=== PATIENT | female | born 1985 | race African-American/Black ===

== ENCOUNTER 2021-04-22 11:36 | Emergency (ER) | payer OTHER, SELFPAY ==
[2021-04-22 12:47] VITALS: BP 134/70; PULSE 98; RESP 16; TEMP 36.2; O2SAT 100
--- NOTE | 2021-04-22 13:26 | ED.FEMALEGU ---
HPI - Female Genitourinary General Chief complaint: Urogenital-Female Stated complaint: poss bladder infection Source: patient and RN notes reviewed Limitations: no limitations History of Present Illness HPI Narrative: The unvaccinated overweight patient, a non-smoker/nondrinker, presents with 1/2-week history of definite urinary urgency and frequency-unlike prior UTIs [but not as severe]. No fever, abdominal pain, vomiting/diarrhea,, [she has an IUD and LMP was within a couple weeks this month]. She comments she has mild right low back pain, and is not sexually active but does have some discharge and would like would like to be treated for vaginosis. Delayed and late day [id number] urinalysis is unremarkable, so will treat broadly Related Data Allergies Allergy/AdvReac Type Severity Reaction Status Date / Time No Known Allergies Allergy Verified 04/22/21 12:46 Review of Systems Review of Systems: General/Constitutional: No weight loss,fever Eyes: N0: Redness,discharge Ears/Nose/Throat: No: Epistaxis,ear discharge Respiratory: Denies: Hemoptysis Gastrointestinal: No Vomiting, Bleeding-rectal Skin: No Lumps, eruption Neurologic: No Focal Weakness,Sz Hematologic: Denies: Petechiae/Purpura Psychiatric: No: Suicida ideationl All Other Systems: Reviewed and Negative PMFSH Comments At time of signature, agree with nursing past medical, surgical, social and family history. There is no relevant family history pertinent to the presenting complaint Exam Narrative: General Appearance: Well appearing, No distress EYE: PERRLA, Conjunctiva clear Ears: External ear normal Nose: Normal nose Mouth/Throat: Normal appearing, Normal lips Neck: Supple Respiratory: Airway patent, No respiratory distress Cardiovascular: RRR Abdomen: Soft, Non-tender, No massess, No organomegaly Musculoskeletal: Full ROM Skin: Warm, Dry Neurological: A&O x3, CN II-X intact Psychiatric: Normal mood, Normal affect Course Vital Signs Vital signs: Vital Signs Temperature 97.1 F L 04/22/21 12:47 Pulse Rate 98 04/22/21 12:47 Respiratory Rate 16 04/22/21 12:47 Blood Pressure 134/70 04/22/21 12:47 Pulse Oximetry 100 04/22/21 12:47 Temperature 97.1 F L 04/22/21 12:47 Pulse Rate 98 04/22/21 12:47 Respiratory Rate 16 04/22/21 12:47 Blood Pressure 134/70 04/22/21 12:47 Pulse Oximetry 100 04/22/21 12:47 MDM - Female Genitourinary Lab Data Labs: Lab Results 04/22/21 04/22/21 Range/Units 14:12 14:15 C.trachomatis RNA (TMA) Pending N.gonorrhoeae RNA (TMA) Pending T. vaginalis Amp RNA Pending Urine Glucose Negative Reference Range: Negative Urine Bilirubin Negative Reference Range: Negative Urine Ketone Negative Reference Range: Negative Urine Specific Horatio 1.030 Reference Range:1.001-1.035 Urine Blood Negative Reference Range: Negative * * Urine pH 6.0 Reference Range: 5.0-9.0 Urine Protein Negative Reference Range: Negative Urine Urobilinogen 1.0 Reference Range: 0.2-1.0 Urine Nitrate Negative Reference Range: Negative Urine Leukocyte Negative Reference Range: Negative Urine Color Gaye
--- NOTE | 2021-04-22 13:33 | PC.NURSE ---
water provided, pt unable to void at present. 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 pt reports frequency with urination and rt side pain. denies any n-v-d.
== END 2021-04-22 14:15 | disposition home or self-care (01) ==
PROVIDERS: Emergency Provider Emergency Medicine
DX: R35.0 Frequency of micturition (principal)
CPT/HCPCS: 81003; 87086; 87491; 87591; 87661; 99214; G0463

== ENCOUNTER 2021-06-17 12:26 | Emergency (ER) | payer OTHER, SELFPAY ==
[2021-06-17 12:33] VITALS: BP 134/68; PULSE 94; RESP 16; TEMP 36.3; O2SAT 100
--- NOTE | 2021-06-17 12:37 | ED.DENTAL ---
HPI - Dental/Oral General Chief complaint: Dental/Oral Stated complaint: Jaw pain Time Seen by Provider: 06/17/21 12:37 Source: patient, RN notes reviewed and old records reviewed Mode of arrival: ambulatory Limitations: no limitations History of Present Illness HPI Narrative: 36 year old female presents to [facility] care with complaints of dental pain to the right upper back molar #1 which is broken off and gum is red and swollen around tooth, no drainage noted. Patient has swelling to the right side of her face with tenderness for the past 2 days, Patient has been taking Ibuprofen for her pain, no trismus noted, no difficult with swallowing or with breathing. Patient denies any fevers, chills or sweats, has not been able to get into a dentist. MD Complaint: tooth pain and tooth injury Location: Tooth # (#1) Onset (ago): day(s) (2) Duration: worsening Severity scale (1-10): 10 Relieving factors: NSAIDs Exacerbating factors: chewing Context: history of dental caries Associated symptoms: gum swelling and other (facial swelling) Treatment prior to arrival: oral analgesic (ibuprofen) Related Data Allergies Allergy/AdvReac Type Severity Reaction Status Date / Time No Known Allergies Allergy Verified 06/17/21 12:32 Review of Systems Review of Systems: CONSTITUTIONAL: Denies fever, chills, or sweats. EYES: Denies visual changes, redness, or discharge. ENT: Denies rhinorrhea, congestion, sore throat, or otalgia.dental pain to right upper most posterior molar which is broken off and facial pain and swelling to right side of face.. CARDIOVASCULAR: Denies chest pain, palpitations, or edema. RESPIRATORY: Denies cough or dyspnea. GASTROINTESTINAL: Denies abdominal pain, nausea, vomiting, or diarrhea. GENITOURINARY: Denies dysuria or hematuria. SKIN: Denies rash or itching. MUSCULOSKELETAL: Denies back pain, joint pain, or myalgia. NEUROLOGIC: Denies headache, numbness, or weakness. PSYCHIATRIC: Denies anxiety or depression. All systems reviewed & are unremarkable except as noted in HPI and below PMFSH Past Medical History Medical History (Updated 06/17/21 @ 14:07 by Paulette Abbasi NP) Right hand weakness states from injury Surgical History Surgical History (Updated 06/17/21 @ 13:53 by Paulette Abbasi NP) H/O neck surgery Patient reports that she had trach at age 4 Family History Family History (Updated 06/17/21 @ 13:51 by Paulette Abbasi NP) Grandparent Hypertension Social History Social History (Updated 06/17/21 @ 13:51 by Paulette Abbasi NP) Smoking status: Never smoker Alcohol intake: never Substance use: never Living arrangements: with family Gender identity (if verbalized by the patient): Female Comments At time of signature, agree with nursing past medical, surgical, social and family history. There is no relevant family history pertinent to the presenting complaint Exam Narrative: GENERAL: Well-appearing, well-nourished, and in no acute distress. HEAD: Normocephalic, atraumatic. EYES: PERRLA and EOMI. ENT: Nares clear, no rhinorrhea or epistaxis. Mucous membranes moist. TM's normal with good light reflex, throat pink with no tonsil swelling, exudates or lesion. Right posterior upper molar#1 broken off with swelling and redness of gum noted with no drainage, right sided facial swelling noted. Patient denies any difficulty with swallowing or with her breathing,no [place] angina or any trismus noted. NECK: Supple.no lymphadenopathy CHEST: Clear to auscultation. No respiratory distress.SAO2 100% on room air, no cough noted or any dyspnea HEART: Regular rate and rhythm. No murmur heard. Normal peripheral pulses. ABDOMEN: Soft, nontender, nondistended, normal active bowel sounds. EXTREMITIES: Normal range of motion. No edema Some decreased mobility of right hand patient reports is from nerve damage due to accident.. SKIN: Warm, dry, no rash. NEURO: No focal deficits. Alert and oriented x3. Cours
== END 2021-06-17 12:58 | disposition home or self-care (01) ==
PROVIDERS: Emergency Provider Registered Nurse
DX: K04.7 Periapical abscess without sinus (principal); S02.5XXA Fracture of tooth (traumatic), initial encounter for closed fracture; X58.XXXA Exposure to other specified factors, initial encounter
CPT/HCPCS: 99213; G0463

== ENCOUNTER 2022-03-04 18:14 | Emergency (ER) | payer OTHER, SELFPAY ==
--- NOTE | 2022-03-04 18:17 | ED.FEMALEGU ---
HPI - Female Genitourinary General Chief complaint: Urogenital-Female Stated complaint: LOW BACK PAIN/PAINFUL URINATION Time Seen by Provider: 03/04/22 18:25 Source: patient and RN notes reviewed Mode of arrival: ambulatory Limitations: no limitations History of Present Illness HPI Narrative: 37-year-old female presents with concern for dysuria, low back pain, frequency, urgency. Reports symptoms started on Monday. She denies fever, body aches, chills, sweats, vomiting, abdominal pain. Reports an episode of nausea. MD elicited complaint: UTI Related Data Allergies Allergy/AdvReac Type Severity Reaction Status Date / Time No Known Allergies Allergy Verified 03/04/22 18:17 Review of Systems Review of Systems: CONSTITUTIONAL: Denies malaise, chills, sweats, or fever. CARDIOVASCULAR: Denies chest pain, palpitations, or edema. RESPIRATORY: Denies cough or dyspnea. GASTROINTESTINAL: Denies abdominal pain, nausea, vomiting, diarrhea. Reports GENITOURINARY: Reports dysuria, frequency, urgency. Denies suprapubic pressure. Denies flank pain or hematuria. SKIN: Denies rash or itching. MUSCULOSKELETAL:. Reports bilateral back pain. Denies myalgia. All systems reviewed & are unremarkable except as noted in HPI and below PMFSH Past Medical History Medical History (Updated 03/04/22 @ 18:28 by Sujatha Gotti NP) Right hand weakness states from injury Surgical History Surgical History (Updated 06/17/21 @ 13:53 by Paulette Abbasi NP) H/O neck surgery Patient reports that she had trach at age 4 Family History Family History (Updated 06/17/21 @ 13:51 by Paulette Abbasi NP) Grandparent Hypertension Social History Social History (Updated 06/17/21 @ 13:51 by Paulette Abbasi NP) Smoking status: Never smoker Alcohol intake: never Substance use: never Gender identity (if verbalized by the patient): Female Comments At time of signature, agree with nursing past medical, surgical, social and family history. There is no relevant family history pertinent to the presenting complaint Exam Narrative: GENERAL: Well-appearing, well-nourished, and in no acute distress. HEAD: Normocephalic. EYES: PERRLA, conjunctivae clear. NECK: Supple. No lymphadenopathy CHEST: Clear to auscultation. No respiratory distress. HEART: Regular rate and rhythm. ABDOMEN: Soft, nontender upon palpation, nondistended, normal active bowel sounds, no palpable or pulsatile masses, no guarding. No CVA tenderness SKIN: Warm, dry, no rash. NEURO: Alert and oriented x3. PSYCH: Normal mood and affect Course Course Emergency Course: Patient is aware of diagnosis, understands and agrees to treatment plan. Anticipatory guidance given. Patient agrees to follow-up as directed and is aware of reasons to seek care at the emergency department. Portions of this record may have been created with voice recognition software Level of Care: Express Care Visit Vital Signs Vital signs: Reviewed. MDM - Female Genitourinary MDM Narrative Medical decision making narrative: Exam findings and UA show no acute concerns or changes; patient is non-toxic appearing and is in no distress. Patient is appropriate for outpatient treatment and follow-up. Differential Diagnosis Differential diagnosis: Likely urinary tract infection and cystitis Critical Care Time Critical Care Time Critical Care Time: No Discharge Plan Discharge Clinical Impression: Urinary tract infection Patient Disposition: Home, Self-Care Condition: Stable Instructions: Antibiotic Form, Urinary Tract Infection in Women (ED) Additional Instructions: We will send a urine culture to the lab; if the culture identifies an organism that the prescribed antibiotic will not treat, you will receive a phone call from an urgent care staff member and an appropriate antibiotic will be prescribed. -Your symptoms should begin to improve within a day of starting antibiotics. But y
[2022-03-04 18:25] VITALS: BP 121/63; PULSE 101; RESP 20; TEMP 36.6; O2SAT 99
== END 2022-03-04 18:30 | disposition home or self-care (01) ==
PROVIDERS: Emergency Provider Nurse Practitioner
DX: N39.0 Urinary tract infection, site not specified (principal)
CPT/HCPCS: 81003; 87086; 87088; 99213; G0463

== ENCOUNTER 2022-04-21 07:41 | Emergency (ER) | payer OTHER, SELFPAY ==
--- NOTE | ~2022-04-21 | XR_ITS ---
EXAMINATION: XR chest 1V portable DATE: 04/21/2022 08:50 INDICATION: Chest pain and shortness of breath TECHNIQUE: frontal view of the chest was obtained. COMPARISON: None FINDINGS: The lungs are clear with no focal airspace opacities, pulmonary edema, pleural effusion or pneumothor ax. The cardiomediastinal silhouette is normal. Visualized bones and soft tissues are unremarkable. IMPRESSION: 1. No acute cardiopulmonary disease. Reviewed, dictated and finalized at location A. NG APPLICATOR
--- NOTE | ~2022-04-21 | CT_ITS ---
EXAMINATION: CTA chest PE protocol DATE: 04/21/2022 10:12 INDICATION: Chest pain and shortness of breath TECHNIQUE: Computed tomography angiography (CTA) of the chest was performed with 100 mL Omnipaque-350 intravenous contrast timed to evaluate the pulmonary arteries. Coronal maximum intensity projection 3D-reconstructions were created by the technologist. The dose-length product (DLP) was 558.60 mGy-cm. Automated exposure control and iterative reconstruction technique were employed. COMPARISON: None. FINDINGS: The pulmonary arteries are well-opacified. No pulmonary embolism is identified. There is mi ld dependent atelectasis. The lungs are free of focal airspace opacities. No pleural effusion or pneu mothorax. No pathologically enlarged thoracic lymph nodes are identified. The heart size is normal. N onobstructing stones of the left kidney upper pole measure up to 4 mm. IMPRESSION: 1. No pulmonary embolism or acute cardiopulmonary abnormality. Reviewed, dictated and finalized at location L. FIELD DATA COLLECTOR
[2022-04-21 07:46] VITALS: BP 148/79; PULSE 105; RESP 18; TEMP 36.5; O2SAT 100
--- NOTE | 2022-04-21 08:02 | ECG_ITS ---
Measurements Intervals [place] Rate: 85 P: 36 ID: [id number] QRS: -18 QRSD: 94 T: 7 QT: 380 QTc: 453 Interpretive Statements SINUS RHYTHM NO PREVIOUS ECG AVAILABLE FOR COMPARISON Electronically Signed On 04-21-2022 14:52:46 LANGUAGE PATHOLOGIST by Fadi Mcallister M.D.
[2022-04-21 08:16] VITALS: BP 109/79; PULSE 95; RESP 18; O2SAT 100
--- NOTE | 2022-04-21 08:17 | ED.GENADULT ---
HPI - General Adult General Chief complaint: Back Pain/Injury Stated complaint: BACK PAIN Time Seen by Provider: 04/21/22 07:51 History of Present Illness HPI narrative: This is a 37-year-old female presenting ED with a chief complaint of back pain and associated shortness of breath. Patient says that when she woke up this morning she had a sharp pain on the left back between her shoulder blades. It is 10 out 10 intensity and constant. She has never had pain like this before, it is worse with deep breaths and movement, there are no alleviating factors. Patient denies fever, chills, abdominal pain or urinary symptoms. She is vaccinated against flu and COVID. family history of unprovoked DVT in the patient's father. No recent trauma, surgery, known malignancy. patient has chronic left lower extremity swelling. Related Data Home Medications Medication Instructions Recorded Confirmed No Home Medications 04/21/22 04/21/22 Allergies Allergy/AdvReac Type Severity Reaction Status Date / Time No Known Allergies Allergy Verified 04/21/22 07:56 Review of Systems Review of Systems: CONSTITUTIONAL: Denies night sweats. EYES: No eye pain ENT: Denies rhinorrhea CARDIOVASCULAR: Denies palpitations RESPIRATORY: Denies hemoptysis GASTROINTESTINAL: Denies hematemesis GENITOURINARY: Denies hematuria. SKIN: Denies rash MUSCULOSKELETAL: Denies myalgia. NEUROLOGIC: Denies weakness. PSYCHIATRIC: Denies delusions PMFSH Past Medical History Medical History Right hand weakness states from injury Surgical History Surgical History H/O neck surgery Patient reports that she had trach at age 4 Family History Family History Grandparent Hypertension Social History Social History Smoking status: Never smoker Alcohol intake: never Substance use: never Gender identity (if verbalized by the patient): Female Exam Narrative: APPEARANCE: No apparent distress. Head: atraumatic. EYES: EOMI, NOSE: Atraumatic NECK: Trachea midline RESPIRATORY: No increased rate of breathing, Clear to auscultation bilaterally, no increased work of breathing CARDIOVASCULAR: tachycardic, left lower extremity is larger than the right without pitting edema. Patient states this is chronic. ABDOMINAL: Non-distended Soft, no guarding rebound MUSCULOSKELETAl: No obvious deformities NEURO: Alert. Moving 4/4 extremities SKIN:: Warm, dry. Normal color PSYCHIATRIC: Normal affect Course Vital Signs Vital signs: Vital Signs Temperature 97.7 F 04/21/22 07:46 Pulse Rate 105 H 04/21/22 07:46 Respiratory Rate 18 04/21/22 07:46 Blood Pressure 148/79 H 04/21/22 07:46 Pulse Oximetry 100 04/21/22 07:46 Oxygen Delivery Room Air 04/21/22 07:46 Temperature 97.7 F 04/21/22 07:46 Pulse Rate 81 04/21/22 09:16 Respiratory Rate 13 04/21/22 09:16 Blood Pressure 128/64 04/21/22 09:16 Pulse Oximetry 100 04/21/22 09:16 Oxygen Delivery Room Air 04/21/22 07:46 Medical Decision Making [facility] Narrative Medical decision making narrative: this is a 37-year-old female presenting ED with a chief complaint of back pain and shortness of breath. Differential includes viral syndrome, pulmonary embolism, pneumonia, muscle strain. Patient is tachycardic and PE cannot be ruled be ruled out via the PERC rule. EKG, chest x-ray lab work including a D-dimer have been ordered. Patient has been treated with nsaids/tylenol and fluids. EKG interpretation: Rhythm [sinus], Rate 85, [place] -[normal], NC -[normal], QRS [narrow], QTC [normal], T waves -[negative for concerning inversions], ST Segments - [Negative for concerning elevations] Final interpretations: [Normal Sinus Rhythm] Lab work was significant for D-dim
--- NOTE | 2022-04-21 08:22 | PC.NURSE ---
BS 102
[2022-04-21 08:23] LABS: Glucose Point of Care 102 mg/dl (65-105)
[2022-04-21 08:28] LABS: Basophils Percent Auto 0.4 % (0.2-1.2); Eosinophils Absolute Auto 0.1 K/mm3 (0-0.3); Eosinophils Percent Auto 1.2 % (0-4.4); Hematocrit 39.7 % (37.0-47.0); Hemoglobin 13.4 g/dL (12.0-15.0); Immature Granulocyte Absolute 0.02 K/mm3 (0.00-0.031); Immature Granulocyte Percent A 0.4 % (0-0.5); Lymphocytes Absolute Auto 2.49 K/mm3 (0.9-3.2); Lymphocytes Percent Auto 48.2 % (18.3-44.2); Mean Corpuscular HGB Conc 33.8 g/dl (32-36); Mean Corpuscular Hemoglobin 31.1 pg (26-34); Mean Corpuscular Volume 92.1 fl (80-100); Monocytes Absolute Auto 0.6 K/mm3 (0.1-0.6); Monocytes Percent Auto 10.6 % (2.6-8.5); Neutrophils Percent Auto 39.2 % (45.5-73.1); Platelet Count Result 166 k/mm3 (150-375); Red Blood Count 4.31 M/mm3 (4.2-5.4); Red Cell Distribution Width 12.2 % (11.5-14.5); White Blood Count 5.2 K/mm3 (4.5-10.0)
[2022-04-21] MEDS: SODIUM CHLORIDE 0.9% IV 2,000 ML 999 ML IV CONT (08:30)
[2022-04-21] MEDS: ONDANSETRON INJ 4 MG/2 ML VIAL IV PUSH (08:31)
[2022-04-21] MEDS: KETOROLAC 15 MG/ML VIAL (*BKC) IV PUSH (08:32)
[2022-04-21 08:33] VITALS: BP 120/92; PULSE 92; RESP 18; O2SAT 100
[2022-04-21 08:36] LABS: Alanine Aminotransferase 24 U/L (6-35); Alkaline Phosphatase 59 U/L (38-126); Anion Gap 3 mmol/L (8-16); Aspartate Amino Transferase 26 U/L (14-36); Bilirubin,Total 0.2 mg/dL (0.2-1.3); Blood Urea Nitrogen 11 mg/dL (7-17); Calcium 8.4 mg/dL (8.4-10.2); Carbon Dioxide 30 mmol/L (22-30); Chloride 103 mmol/L (98-107); Estimated CRCL calculation 109 ml/min; Estimated Glomerular Filt Rate > 60; Glucose 105 mg/dL (65-110); Magnesium 1.9 mg/dL (1.6-2.3); Potassium 3.9 mmol/L (3.4-5.0); Sodium 136 mmol/L (137-145)
[2022-04-21 08:44] LABS: NT Pro B Type Natriuretic Pept < 11 pg/mL (5-100)
[2022-04-21 08:48] LABS: Troponin I < 0.012 ng/mL (0.000-0.034)
[2022-04-21 08:58] LABS: INR 1.1; Influenza A QL RT-PCR Negative (Negative); Influenza B QL RT-PCR Negative (Negative); Prothrombin Time 13.5 Seconds (11.1-14.7); RSV RNA, RT-PCR Negative (Negative); SARS-CoV-2 RNA PCR Negative
[2022-04-21 08:59] LABS: Partial Thromboplastin Time 27.7 SECONDS (22.3-36.8)
[2022-04-21 09:16] VITALS: BP 128/64; PULSE 81; RESP 13; O2SAT 100
[2022-04-21 09:28] LABS: D Dimer 0.57 ug/mL (<0.48)
--- NOTE | 2022-04-21 09:51 | PC.NURSE ---
Pt attempted to provide urine sample and was unable to
[2022-04-21 10:01] VITALS: BP 118/68; PULSE 81; RESP 36; O2SAT 100
== END 2022-04-21 11:32 | disposition home or self-care (01) ==
PROVIDERS: Emergency Provider Emergency Medicine
DX: B34.9 Viral infection, unspecified (principal); Z20.822 Contact with and (suspected) exposure to COVID-19
CPT/HCPCS: 36415; 71045; 71275; 80053; 82948; 83735; 83880; 84484; 85025; 85380; 85610; 85730; 87637; 93005; 96361; 96365; 96375; 99284; J0131; J1885; J2405; J7030; Q9967

== ENCOUNTER 2022-06-22 18:39 | Emergency (ER) | payer OTHER, SELFPAY ==
[2022-06-22 18:46] VITALS: BP 143/89; PULSE 105; RESP 16; TEMP 37.2; O2SAT 100
--- NOTE | 2022-06-22 18:58 | ED.URI ---
HPI - URI/Sore Throat General Chief Complaint: Upper Respiratory Infection Stated Complaint: SORE THROAT/BODY ACHES/DIZZY Time Seen by Provider: 06/22/22 18:58 Source: patient Mode of arrival: ambulatory Limitations: no limitations History of Present Illness HPI Narrative: patient is a 37-year-old female presents with sore throat, headache, body aches, fever, and chills for 3 days. Patient has been taking Tylenol cold med with no relief. Denies any nasal congestion, cough, sinus pressure And ear pain. Related Data Allergies Allergy/AdvReac Type Severity Reaction Status Date / Time No Known Allergies Allergy Verified 06/22/22 18:46 Review of Systems Review of Systems: CONSTITUTIONAL: Reports malaise, chills, sweats, or fever.? EYES: Denies visual changes, redness, or discharge.? ENT: denies rhinorrhea, congestion, sinus pain, otalgia reports sore throat.? CARDIOVASCULAR: Denies chest pain, palpitations, or edema.? RESPIRATORY: denies cough, dyspnea.? GASTROINTESTINAL: Denies abdominal pain, nausea, vomiting, diarrhea? SKIN: Denies rash or itching.? MUSCULOSKELETAL: reports myalgia.? NEUROLOGIC: Denies headache All systems reviewed & are unremarkable except as noted in HPI and below PMFSH Past Medical History Medical History Right hand weakness states from injury Surgical History Surgical History H/O neck surgery Patient reports that she had trach at age 4 Family History Family History Grandparent Hypertension Social History Social History Smoking status: Never smoker Alcohol intake: never Substance use: never Living arrangements: with family Gender identity (if verbalized by the patient): Female Comments At time of signature, agree with nursing past medical, surgical, social and family history. There is no relevant family history pertinent to the presenting complaint? Exam Narrative: GENERAL: Well-appearing, well-nourished, and in no acute distress.? HEAD: Normocephalic, atraumatic.? EYES: PERRLA, conjunctivae clear, and EOMI. No nystagmus.? ENT: Nares clear, turbinates pink, no rhinorrhea or epistaxis. Mucous membranes moist. TM pearly crook with sharp light reflex bilaterally; no tragal tenderness. Oropharynx with erythema without lesions. Tonsils 2+ enlargement and with mild exudate.? NECK: Supple. No lymphadenopathy. CHEST: No respiratory distress. Clear to auscultation.? No bony deformities, no asymmetry. Speaks in full sentences.? HEART: Regular rate and rhythm. No murmur heard. ? ABDOMEN: Soft, nontender, nondistended EXTREMITIES: Normal range of motion. No edema. ? SKIN: Warm, dry, no rash.? NEURO: Alert and oriented x3. No focal deficits. PSYCH: Normal mood and affect? Course Course Emergency Course: Patient is aware of diagnosis, understands and agrees to treatment plan.? Anticipatory guidance given.? Patient agrees to follow-up as directed and is aware of reasons to seek care at the emergency department.? Portions of this record may have been created with voice recognition software? Level of Care: Express Care Visit Vital Signs Vital signs: Vital Signs Temperature 37.2 C 06/22/22 18:46 Pulse Rate 105 H 06/22/22 18:46 Respiratory Rate 16 06/22/22 18:46 Blood Pressure 143/89 H 06/22/22 18:46 Pulse Oximetry 100 06/22/22 18:46 Temperature 37.2 C 06/22/22 18:46 Pulse Rate 105 H 06/22/22 18:46 Respiratory Rate 16 06/22/22 18:46 Blood Pressure 143/89 H 06/22/22 18:46 Pulse Oximetry 100 06/22/22 18:46 Reviewed MDM - URI/Sore Throat MDM Narrative Medical decision making narrative: Differential diagnosis considered: [place] virus, strep pharyngitis, allergic rhinitis, upper respiratory tract infection, sinusitis, rhinosinusitis, nasopharyn
== END 2022-06-22 19:10 | disposition home or self-care (01) ==
PROVIDERS: Emergency Provider Nurse Practitioner Family
DX: J02.0 Streptococcal pharyngitis (principal)
CPT/HCPCS: 87880; 99213; G0463

== ENCOUNTER 2022-09-29 11:33 | Outpatient (CLI) | payer BC, SELFPAY ==
[2022-09-29 12:25] LABS: Alanine Aminotransferase 26 U/L (6-35); Aspartate Amino Transferase 29 U/L (14-36)
== END 2022-09-29 11:34 | disposition home or self-care (01) ==
LOC: ANHLAB 11:37
PROVIDERS: Visit Provider Podiatrist Foot & Ankle Surgery
DX: B35.1 Tinea unguium (principal)
CPT/HCPCS: 36415; 84450; 84460

== ENCOUNTER 2024-02-27 16:42 | Emergency (ER) | payer SELFPAY ==
[2024-02-27 16:45] VITALS: BP 139/73; PULSE 88; RESP 19; TEMP 36.6; O2SAT 99
--- NOTE | 2024-02-27 17:20 | ED.GENADULT ---
HPI - General Adult General Chief complaint: Urogenital-Female Stated complaint: Uti Symptoms Source: patient Mode of arrival: ambulatory Limitations: no limitations History of Present Illness HPI narrative: Patient presents for evaluation of urinary symptoms since last week. Symptoms include dysuria and urinary frequency. She denies any hematuria, abdominal pain, low back pain, fever, chills, nausea, vomiting, vaginal bleeding or discharge. She has an IUD and saw her OBGYN last week. She states she was diagnosed with a UTI then. She was placed on macrobid, which she has taken as directed. No improvement in her symptoms. Related Data Allergies Allergy/AdvReac Type Severity Reaction Status Date / Time No Known Allergies Allergy Verified 02/27/24 16:54 Review of Systems Review of Systems: CONSTITUTIONAL: Denies fever, chills, or sweats. EYES: Denies visual changes, redness, or discharge. ENT: Denies rhinorrhea, congestion, sore throat, or otalgia. CARDIOVASCULAR: Denies chest pain, palpitations, or edema. RESPIRATORY: Denies cough or dyspnea. GASTROINTESTINAL: Denies abdominal pain, nausea, vomiting, or diarrhea. GENITOURINARY: Reports dysuria and urinary frequency. Denies hematuria, vaginal bleeding/discharge SKIN: Denies rash or itching. MUSCULOSKELETAL: Denies back pain, joint pain, or myalgia. NEUROLOGIC: Denies headache, numbness, dizziness, or weakness. PSYCHIATRIC: Denies anxiety or depression. PMFSH Past Medical History Medical History Right hand weakness states from injury Surgical History Surgical History H/O neck surgery Patient reports that she had trach at age 4 Family History Family History Grandparent Hypertension Social History Social History Smoking status: Never smoker Alcohol intake: never Substance use: never Living arrangements: with family Gender identity (if verbalized by the patient): Female Exam Narrative: GENERAL: Well-appearing, well-nourished, and in no acute distress. HEAD: Normocephalic, atraumatic. EYES: PERRLA and EOMI. ENT: Nares clear, no rhinorrhea or epistaxis. Mucous membranes moist. Oropharynx without tonsillar hypertrophy exudate or other lesions. Bilateral TMs pearly crook nonbulging NECK: Supple. No adenopathy or masses. No carotid bruits or JVD CHEST: Clear to auscultation. No respiratory distress. No wheezes rales or rhonchi HEART: Regular rate and rhythm. No murmur heard. Normal peripheral pulses. ABDOMEN: Soft, nontender, nondistended, normal active bowel sounds. EXTREMITIES: Normal range of motion. No edema. SKIN: Warm, dry, no rash. NEURO: No focal deficits. Alert and oriented x3. PSYCH: Normal mood and affect. Course Course Emergency Course: This is a 39-year-old female who presented for evaluation of urinary symptoms. She has 1+ leukocytes in her urine today. She did not respond to Macrobid. Will try Bactrim. Send urine for culture. Start Pyridium. Increase hydration. Follow up with primary provider. Go to the ER for worsening symptoms. Patient in agreement with plan of care Level of Care: Express Care Visit Vital Signs Vital signs: Vital Signs Temperature 36.6 C 02/27/24 17:00 Pulse Rate 88 02/27/24 17:00 Respiratory Rate 19 02/27/24 17:00 Blood Pressure 139/73 02/27/24 17:00 Pulse Oximetry 99 02/27/24 17:00 Temperature 36.6 C 02/27/24 17:00 Pulse Rate 88 02/27/24 17:00 Respiratory Rate 19 02/27/24 17:00 Blood Pressure 139/73 02/27/24 17:00 Pulse Oximetry 99 02/27/24 17:00 Medical Decision Making Vital Signs Vital Signs: Vital Signs Temperature 36.6 C 02/27/24 17:00 Pulse Rate 88 02/27/24 17:00 Respiratory Rate 19 02/27/24 17:00 Blood Pressure 139/73 02/27/24 17:00 Pulse Oximetry 99 02/27/24 17:00 Temperature 36.6 C 02/27/24 17:00 Pulse Rate 88 02/27/24 17:00 Respiratory Rate 19 02/27/24 17:00 Blood Pressure 139/73 02/27/24 17:00 Pulse Oximetry 99 02/27/24 17:00 Discharge Plan Discharge Clinical Impression: Urinary tract infection Patient Disposition: Home, Self-Care Condition: Stable Instructions: Antibiotic Form, Urinary Tract Infection in Women (ED) Patient Language: Croatian Prescriptions: New sulfamethoxazole-trimethoprim [Bactrim DS] 800-160 mg tablet 1 tablet PO Q12H Qty: 14 0RF phenazopyridine [Pyridium] 200 mg tablet 200 mg PO TID Qty: 6 0RF Follow-up/Referrals: Du Faust MD [Physician] - Time of Disposition: 17:16
[2024-02-27 17:21] LABS: EDUAAPPEAR Clear; EDUABILI Negative (Negative); EDUABLOOD Trace (Negative); EDUACOLOR1 Yellow; EDUAGLUCOSE Negative (Negative); EDUAKETONE Negative (Negative); EDUALEUKO 1+ (Negative); EDUANITRATE Negative (Negative); EDUAPROTEIN 1+ (Negative)
== END 2024-02-27 17:30 | disposition home or self-care (01) ==
PROVIDERS: Emergency Provider Nurse Practitioner
DX: N39.0 Urinary tract infection, site not specified (principal); B95.2 Enterococcus as the cause of diseases classified elsewhere
CPT/HCPCS: 81003; 87086; 87181; 99213; G0463

== ENCOUNTER 2024-11-11 09:16 | Outpatient (CLI) | payer BC, SELFPAY ==
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
== END 2024-11-11 09:17 | disposition home or self-care (01) ==
PROVIDERS: PCP Chiropractor; Visit Provider Chiropractor
DX: M54.2 Cervicalgia (principal); M54.50 Low back pain, unspecified; M25.532 Pain in left wrist; M25.572 Pain in left ankle and joints of left foot
CPT/HCPCS: 72052; 72114; 73110; 73610